=== PATIENT | female | born 1985 | race Caucasian/White ===

== ENCOUNTER 2024-02-21 06:10 | Day surgery (SDC) | payer OTHER ==
[2024-02-20 13:11] VITALS: BMI 34.8
[2024-02-21] MEDS ORDERED: CeleCOXIB 100 MG CAP ONE (06:40)
[2024-02-21] MEDS ORDERED: Gabapentin 300 MG CAP ONE (06:40)
[2024-02-21] MEDS ORDERED: PROPOFOL 40 ML ONE (07:07)
[2024-02-21] MEDS ORDERED: Ondansetron PF 4 MG/2 ML Vial ONE (07:08)
[2024-02-21] MEDS ORDERED: Lidocaine 1% PF 5 ML VIAL ONE (07:08)
[2024-02-21] MEDS ORDERED: Dexamethasone 4 mg/ml Vial ONE (07:08)
[2024-02-21] MEDS ORDERED: fentaNYL 50 mcg/mL 1 mL Vial ONE (07:08)
[2024-02-21] MEDS ORDERED: Misoprostol 200 MCG TAB ONE (07:20)
[2024-02-21] MEDS ORDERED: Tranexamic Acid 1,000 MG/10 ML VIAL ONE (07:20)
[2024-02-21] MEDS ORDERED: Carboprost 250 MCG/ML AMP ONE (07:20)
[2024-02-21] MEDS ORDERED: Methylergonovine 0.2 MG/ML VIAL ONE (07:20)
[2024-02-21] MEDS ORDERED: Midazolam HCl 2 mg/2 ml Vial ONE (07:40)
[2024-02-21] MEDS ORDERED: Famotidine/PF 20 mg/2ml Vial ONE (08:25)
[2024-02-21] MEDS ORDERED: Meperidine HCl/PF 25 MG (1 mL) VIAL ONE (09:11)
[2024-02-21] MEDS ORDERED: Promethazine HCl 25 MG/ML VIAL ONE (09:37)
[2024-02-21] MEDS ORDERED: HYDROcodone/Acetaminophen 5/325 mg Tablet ONE (10:14)
== END 2024-02-21 11:10 | disposition home or self-care (01) ==
LOC: CSHSDC 06:10
PROVIDERS: ATTEND Obstetrics & Gynecology
PROC: 10D17ZZ Extraction of Products of Conception, Retained, Via Natural or Artificial Opening (ICD-10-PCS; principal; 2024-02-21)
DX: O02.1 Missed abortion (principal); K21.9 Gastro-esophageal reflux disease without esophagitis; M50.30 Other cervical disc degeneration, unspecified cervical region; Z88.5 Allergy status to narcotic agent; Z88.8 Allergy status to other drugs, medicaments and biological substances; Z79.899 Other long term (current) drug therapy; Z98.890 Other specified postprocedural states; Z88.1 Allergy status to other antibiotic agents
CPT/HCPCS: 88305; J1100; J2175; J2210; J2250; J2405; J2550; J2704; J3010; J3490